=== PATIENT | male | born 1980 | race Two or more races ===

== ENCOUNTER 2024-05-27 08:52 | Emergency (ER) | payer OTHER ==
[2024-05-27 09:03] VITALS: BP 99/60; PULSE 67; RESP 16; TEMP 97.9; BMI 33.5
[2024-05-27] MEDS ORDERED: LIDOCAINE HCL 2% (20ML MULTI-DOSE VIAL) ONE (09:39)
[2024-05-27] MEDS: LIDOCAINE HCL 2% (50ML VIAL) INF ONE (10:10)
== END 2024-05-27 10:30 | disposition home or self-care (01) ==
LOC: FER 08:52
PROC: 0XQDXZZ Repair Right Lower Arm, External Approach (ICD-10-PCS; principal; 2024-05-27)
DX: S51.811A Laceration without foreign body of right forearm, initial encounter (principal); W20.8XXA Other cause of strike by thrown, projected or falling object, initial encounter
CPT/HCPCS: 99283-25